=== PATIENT | female | born 1965 | race Asian ===

== ENCOUNTER 2016-12-06 08:40 | Outpatient (CLI) | payer BC, OTHER ==
[2016-12-06 09:46] LABS: APPEARANCE,URINE CLEAR (CLEAR); BILIRUBIN,URINE NEGATIVE (NEGATIVE); BLOOD, URINE 1+ Ery/uL (NEGATIVE); COLOR,URINE YELLOW (YELLOW); KETONES,URINE NEGATIVE (NEGATIVE); LEUKOCYTE ESTERASE ,URINE NEGATIVE (NEGATIVE); NITRITE, URINE NEGATIVE (NEGATIVE); PH,URINE 5.5 (5.0-8.0); PROTEIN,URINE NEGATIVE (NEGATIVE); UGLUCOSE NEGATIVE (NEGATIVE); UROBILINOGEN,URINE 0.2 EU/dL (0.2)
[2016-12-06 09:56] LABS: BASOPHILS % (AUTO) 0.8 % (0.0-2.0); EOSINOPHILS # (AUTO) 0.2 /CMM (0.0-0.7); EOSINOPHILS % (AUTO) 3.4 % (0.0-6.0); HEMATOCRIT 45 % (33-45); HEMOGLOBIN 15.1 g/dL (11.5-14.8); LYMPHOCYTES # (AUTO) 1.6 /CMM (0.8-4.8); LYMPHOCYTES % (AUTO) 28.2 % (20.0-44.0); MEAN CORPUSCULAR HEMOGLOBIN 31 PG (26.0-33.0); MEAN CORPUSCULAR HGB CONC 34 g/dl (31.0-36.0); MEAN CORPUSCULAR VOLUME 91 fL (82-100); MONOCYTES # (AUTO) 0.4 /CMM (0.1-1.30); MONOCYTES % (AUTO) 7.5 % (2.0-12.0); NEUTROPHILS # (AUTO) 3.6 /CMM (1.8-8.9); NEUTROPHILS % (AUTO) 60.1 % (43.0-81.0); PLATELET COUNT (AUTO) 246 /CMM (150-450); RDW COEFFICIENT OF VARIATION 11.3 (11.5-15.0); RED BLOOD CELL COUNT(AUTO) 4.88 MIL/uL (4.0-5.2); WHITE BLOOD COUNT (AUTO) 5.8 K/uL (4.3-11.0)
[2016-12-06 10:06] LABS: ALBUMIN 4.2 g/dL (3.4-5.0); BILIRUBIN,TOTAL 0.7 mg/dL (0.2-1.0); CALCIUM, SERUM 9.2 mg/dL (8.5-10.1); CREATININE 0.8 mg/dL (0.6-1.3); POTASSIUM 4.1 mmol/L (3.5-5.1); TOTAL PROTEIN, SERUM 7.8 g/dL (6.4-8.2)
[2016-12-06 10:09] LABS: INR 0.89 (0.87-1.13); PROTHROMBIN TIME 9.4 SECS (9.5-12.7)
[2016-12-06 10:12] LABS: THYROID STIMULATING HORMONE 1.243 uIU/mL (0.358-3.74)
[2016-12-06 10:51] LABS: BACTERIA,URINE Rare /HPF (None Seen); RBC,URINE 0-2 /HPF (0-2); SQUAMOUS EPITHELIAL CELL,UR Rare /HPF (None Seen)
== END 2016-12-06 23:59 | disposition home or self-care (01) ==
LOC: LAB 08:40
PROVIDERS: ATTEND Legal Medicine
DX: Z00.00 Encounter for general adult medical examination without abnormal findings (principal); I10 Essential (primary) hypertension; E78.5 Hyperlipidemia, unspecified; E03.9 Hypothyroidism, unspecified
CPT/HCPCS: 80053-TC; 80061-TC; 81000-TC; 82306; 84443-TC; 85025-TC; 85730-TC; 86850-TC

== ENCOUNTER 2016-12-24 16:13 | Outpatient (CLI) | payer BC, OTHER ==
[2016-12-25 11:14] LABS: *RUBEOLA AB (IGG) >300.0 AU/mL (Immune >29.9); VARICELLA ZOSTER IgG <135 index (Immune >165)
[2016-12-26 05:11] LABS: RUBELLA ANTIBODIES, IGG 1.17 index (Immune >0.99)
== END 2016-12-24 23:59 | disposition home or self-care (01) ==
LOC: LAB 16:13
PROVIDERS: ATTEND Legal Medicine
DX: Z00.01 Encounter for general adult medical examination with abnormal findings (principal)
CPT/HCPCS: 36415; 80305; 86706; 86735; 86762; 86765; 86787

== ENCOUNTER 2017-02-08 10:45 | Outpatient (CLI) | payer BC, OTHER ==
[2017-02-09 12:16] LABS: VARICELLA ZOSTER IgG 191 index (Immune >165)
== END 2017-02-08 23:59 | disposition home or self-care (01) ==
LOC: LAB 10:45
PROVIDERS: ATTEND Internal Medicine
DX: Z11.59 Encounter for screening for other viral diseases (principal)
CPT/HCPCS: 36415; 86787

== ENCOUNTER 2017-02-16 08:28 | Outpatient (CLI) | payer BC, OTHER | END 2017-02-16 23:59 | disposition home or self-care (01) | LOC: RAD 08:28 | PROVIDERS: ATTEND Legal Medicine | DX: R76.11 Nonspecific reaction to tuberculin skin test without active tuberculosis (principal) | CPT/HCPCS: 71020-TC ==

== ENCOUNTER 2017-04-24 06:49 | Outpatient (CLI) | payer BC ==
[2017-04-24 07:47] LABS: BASOPHILS % (AUTO) 0.4 % (0.0-2.0); EOSINOPHILS # (AUTO) 0.2 /CMM (0.0-0.7); EOSINOPHILS % (AUTO) 2.9 % (0.0-6.0); HEMATOCRIT 42 % (33-45); HEMOGLOBIN 14.3 g/dL (11.5-14.8); LYMPHOCYTES % (AUTO) 27.1 % (20.0-44.0); MEAN CORPUSCULAR HEMOGLOBIN 31 PG (26.0-33.0); MEAN CORPUSCULAR HGB CONC 34 g/dl (31.0-36.0); MEAN CORPUSCULAR VOLUME 91 fL (82-100); MONOCYTES # (AUTO) 0.5 /CMM (0.1-1.30); MONOCYTES % (AUTO) 7.1 % (2.0-12.0); NEUTROPHILS # (AUTO) 4.7 /CMM (1.8-8.9); NEUTROPHILS % (AUTO) 62.5 % (43.0-81.0); PLATELET COUNT (AUTO) 211 /CMM (150-450); RDW COEFFICIENT OF VARIATION 12.4 (11.5-15.0); RED BLOOD CELL COUNT(AUTO) 4.59 MIL/uL (4.0-5.2); WHITE BLOOD COUNT (AUTO) 7.5 K/uL (4.3-11.0)
[2017-04-24 07:52] LABS: ALANINE AMINOTRANSFERASE 63 U/L (12-78); ALKALINE PHOSPHATASE 80 U/L (46-116); ASPARTATE AMINOTRANSFERASE 35 U/L (15-37); BILIRUBIN,TOTAL 0.7 mg/dL (0.2-1.0); CALCIUM, SERUM 9.2 mg/dL (8.5-10.1); CARBON DIOXIDE 26 mmol/L (21-32); CHLORIDE 105 mmol/L (98-107); CREATININE 0.7 mg/dL (0.6-1.3); GLUCOSE 100 mg/dL (74-106); SODIUM SERUM 140 mmol/L (136-145); TOTAL PROTEIN, SERUM 7.5 g/dL (6.4-8.2); UREA NITROGEN, BLOOD 15 mg/dL (7-18)
[2017-04-24 08:16] LABS: IRON, SERUM 100 ug/dl (50-175); TOTAL IRON BINDING CAPACITY 261 ug/dl (250-450)
[2017-04-24 08:35] LABS: CHOLESTEROL 196 mg/dL (<200); FERRITIN 324 ng/mL (8-388); HDL CHOLESTEROL 57 mg/dL (40-60); LDL 120 mg/dL (0-99); THYROID STIMULATING HORMONE 2.391 uIU/mL (0.358-3.74); TRIGLYCERIDES 127 mg/dL (30-150); URIC ACID 4.7 mg/dL (2.6-7.2)
[2017-04-24 08:41] LABS: C-REACTIVE PROTEIN < 0.2 mg/dL (0.0-0.9)
[2017-04-24 09:05] LABS: APPEARANCE,URINE CLEAR (CLEAR); BILIRUBIN,URINE NEGATIVE (NEGATIVE); BLOOD, URINE 1+ Ery/uL (NEGATIVE); COLOR,URINE YELLOW (YELLOW); KETONES,URINE NEGATIVE (NEGATIVE); LEUKOCYTE ESTERASE ,URINE NEGATIVE (NEGATIVE); NITRITE, URINE NEGATIVE (NEGATIVE); PH,URINE 5.5 (5.0-8.0); PROTEIN,URINE NEGATIVE (NEGATIVE); UGLUCOSE NEGATIVE (NEGATIVE); UROBILINOGEN,URINE 0.2 EU/dL (0.2)
[2017-04-24 09:36] LABS: BACTERIA,URINE Rare /HPF (None Seen); RBC,URINE 0-2 /HPF (0-2); SQUAMOUS EPITHELIAL CELL,UR Rare /HPF (None Seen); WBC,URINE 0-2 /HPF (0-3)
== END 2017-04-24 23:59 | disposition home or self-care (01) ==
LOC: LAB 06:49
DX: D64.9 Anemia, unspecified (principal)
CPT/HCPCS: 36415; 80053-TC; 80061-TC; 81000-TC; 82306; 82728-TC; 82746; 83540-TC; 84443-TC; 84550-TC; 85025-TC; 85652-TC; 86140-TC

== ENCOUNTER 2017-10-21 07:19 | Outpatient (CLI) | payer BC ==
[2017-10-21 08:58] LABS: APPEARANCE,URINE CLEAR (CLEAR); BILIRUBIN,URINE NEGATIVE (NEGATIVE); BLOOD, URINE TRACE-INTA Ery/uL (NEGATIVE); COLOR,URINE YELLOW (YELLOW); KETONES,URINE NEGATIVE (NEGATIVE); LEUKOCYTE ESTERASE ,URINE NEGATIVE (NEGATIVE); NITRITE, URINE NEGATIVE (NEGATIVE); PROTEIN,URINE NEGATIVE (NEGATIVE); UGLUCOSE NEGATIVE (NEGATIVE); UROBILINOGEN,URINE 0.2 EU/dL (0.2)
[2017-10-21 09:12] LABS: BASOPHILS # (AUTO) 0.1 /CMM (0.0-0.2); BASOPHILS % (AUTO) 0.9 % (0.0-2.0); HEMATOCRIT 45 % (33-45); HEMOGLOBIN 15.8 g/dL (11.5-14.8); LYMPHOCYTES # (AUTO) 1.6 /CMM (0.8-4.8); MEAN CORPUSCULAR HGB CONC 36 g/dl (31.0-36.0); MEAN CORPUSCULAR VOLUME 90 fL (82-100); MONOCYTES # (AUTO) 0.4 /CMM (0.1-1.30); MONOCYTES % (AUTO) 5.5 % (2.0-12.0); NEUTROPHILS # (AUTO) 4.2 /CMM (1.8-8.9); NEUTROPHILS % (AUTO) 63.6 % (43.0-81.0); PLATELET COUNT (AUTO) 224 /CMM (150-450); RDW COEFFICIENT OF VARIATION 11.5 (11.5-15.0); RED BLOOD CELL COUNT(AUTO) 4.93 MIL/uL (4.0-5.2); WHITE BLOOD COUNT (AUTO) 6.6 K/uL (4.3-11.0)
[2017-10-21 09:22] LABS: ALBUMIN 4.1 g/dL (3.4-5.0); BILIRUBIN,TOTAL 0.6 mg/dL (0.2-1.0); CREATININE 0.8 mg/dL (0.6-1.3); POTASSIUM 4.2 mmol/L (3.5-5.1); TOTAL PROTEIN, SERUM 7.9 g/dL (6.4-8.2)
[2017-10-21 09:37] LABS: BACTERIA,URINE None seen /HPF (None Seen); SQUAMOUS EPITHELIAL CELL,UR Few /HPF (None Seen); WBC,URINE NONE SEEN /HPF (0-3)
[2017-10-21 10:14] LABS: THYROID STIMULATING HORMONE 1.178 uIU/mL (0.358-3.74); URIC ACID 4.7 mg/dL (2.6-7.2)
== END 2017-10-21 23:59 | disposition home or self-care (01) ==
LOC: LAB 07:19
PROVIDERS: ATTEND Legal Medicine
DX: Z00.01 Encounter for general adult medical examination with abnormal findings (principal); E55.9 Vitamin D deficiency, unspecified; R79.89 Other specified abnormal findings of blood chemistry
CPT/HCPCS: 36415; 80053-TC; 80061-TC; 81000-TC; 82306; 82728-TC; 82746; 83540-TC; 84443-TC; 84550-TC; 85025-TC

== ENCOUNTER 2017-11-29 13:20 | Outpatient (CLI) | payer BC | END 2017-11-29 23:59 | disposition home or self-care (01) | LOC: LAB 13:20 | PROVIDERS: ATTEND Obstetrics & Gynecology | DX: Z01.411 Encounter for gynecological examination (general) (routine) with abnormal findings (principal) | CPT/HCPCS: 88142 ==

== ENCOUNTER 2017-12-01 09:10 | Outpatient (CLI) | payer BC | END 2017-12-01 23:59 | disposition home or self-care (01) | LOC: US 09:10 | PROVIDERS: ATTEND Obstetrics & Gynecology | DX: N94.89 Other specified conditions associated with female genital organs and menstrual cycle (principal) | CPT/HCPCS: 76856-TC ==

== ENCOUNTER 2017-12-13 08:37 | Outpatient (CLI) | payer BC | END 2017-12-13 23:59 | disposition home or self-care (01) | LOC: RAD 08:37 | PROVIDERS: ATTEND Legal Medicine | DX: M20.12 Hallux valgus (acquired), left foot (principal); M21.611 Bunion of right foot; M21.612 Bunion of left foot | CPT/HCPCS: 73630-TC ==

== ENCOUNTER 2017-12-16 09:00 | Outpatient (CLI) | payer BC | END 2017-12-16 23:59 | disposition home or self-care (01) | LOC: WOU 09:00 | PROVIDERS: ATTEND Podiatrist Foot & Ankle Surgery | DX: M21.612 Bunion of left foot (principal); Q66.89 Other specified congenital deformities of feet; M79.672 Pain in left foot | CPT/HCPCS: 99213; Z7610; G0463 ==

== ENCOUNTER 2018-02-25 11:12 | Outpatient (CLI) | payer BC ==
[2018-02-25 12:58] LABS: BASOPHILS % (AUTO) 0.3 % (0.0-2.0); HEMATOCRIT 46 % (33-45); HEMOGLOBIN 15.5 g/dL (11.5-14.8); LYMPHOCYTES # (AUTO) 1.9 /CMM (0.8-4.8); LYMPHOCYTES % (AUTO) 27.5 % (20.0-44.0); MEAN CORPUSCULAR HEMOGLOBIN 32 PG (26.0-33.0); MEAN CORPUSCULAR HGB CONC 34 g/dl (31.0-36.0); MEAN CORPUSCULAR VOLUME 94 fL (82-100); MONOCYTES # (AUTO) 0.6 /CMM (0.1-1.30); MONOCYTES % (AUTO) 8.5 % (2.0-12.0); NEUTROPHILS # (AUTO) 4.2 /CMM (1.8-8.9); NEUTROPHILS % (AUTO) 61.7 % (43.0-81.0); PLATELET COUNT (AUTO) 263 /CMM (150-450); RDW COEFFICIENT OF VARIATION 12.4 (11.5-15.0); RED BLOOD CELL COUNT(AUTO) 4.92 MIL/uL (4.0-5.2); WHITE BLOOD COUNT (AUTO) 6.8 K/uL (4.3-11.0)
[2018-02-25 13:03] LABS: APPEARANCE,URINE SL CLOUDY (CLEAR); BILIRUBIN,URINE NEGATIVE (NEGATIVE); BLOOD, URINE TRACE Ery/uL (NEGATIVE); COLOR,URINE YELLOW (YELLOW); KETONES,URINE NEGATIVE (NEGATIVE); LEUKOCYTE ESTERASE ,URINE NEGATIVE (NEGATIVE); NITRITE, URINE NEGATIVE (NEGATIVE); PH,URINE 5.5 (5.0-8.0); PROTEIN,URINE NEGATIVE (NEGATIVE); UGLUCOSE NEGATIVE (NEGATIVE); UROBILINOGEN,URINE 0.2 EU/dL (0.2)
[2018-02-25 13:15] LABS: BACTERIA,URINE 1+ /HPF (None Seen); WBC,URINE 0-2 /HPF (0-3)
[2018-02-25 13:42] LABS: ALANINE AMINOTRANSFERASE 64 U/L (12-78); ALBUMIN 4.1 g/dL (3.4-5.0); ALKALINE PHOSPHATASE 85 U/L (46-116); ASPARTATE AMINOTRANSFERASE 36 U/L (15-37); BILIRUBIN,TOTAL 0.7 mg/dL (0.2-1.0); CALCIUM, SERUM 9.4 mg/dL (8.5-10.1); CARBON DIOXIDE 26 mmol/L (21-32); CHLORIDE 103 mmol/L (98-107); CHOLESTEROL 239 mg/dL (<200); CREATINE KINASE, TOTAL 128 U/L (26-192); CREATININE 0.8 mg/dL (0.6-1.3); FREE T4 (FREE THYROXINE) 1.05 ng/dL (0.76-1.46); GLUCOSE 84 mg/dL (74-106); HDL CHOLESTEROL 60 mg/dL (40-60); LDL 148 mg/dL (0-99); POTASSIUM 4.2 mmol/L (3.5-5.1); SODIUM SERUM 140 mmol/L (136-145); THYROID STIMULATING HORMONE 1.693 uIU/mL (0.358-3.74); TOTAL PROTEIN, SERUM 7.8 g/dL (6.4-8.2); TRIGLYCERIDES 244 mg/dL (30-150); UREA NITROGEN, BLOOD 18 mg/dL (7-18); URIC ACID 5.2 mg/dL (2.6-7.2)
[2018-02-25 13:43] LABS: C-REACTIVE PROTEIN < 0.2 mg/dL (0.0-0.9)
[2018-02-25 14:03] LABS: INR 0.87 (0.87-1.13)
[2018-02-26 18:07] LABS: *ANA ANTI-CENTROMERE B AB <0.2 AI (0.0-0.9); *ANA ANTI-DNA(DS) AB, QN 2 IU/mL (0-9); *ANA ANTI-JO-1 <0.2 AI (0.0-0.9); *ANA ANTICHROMATIN ANTIBODY <0.2 AI (0.0-0.9); *ANA RNP ANTIBODIES <0.2 AI (0.0-0.9); *ANA SJOGREN'S ANTI-SS-A <0.2 AI (0.0-0.9); *ANA SJOGREN'S ANTI-SS-B <0.2 AI (0.0-0.9); *ANAANTI-SCLERODERMA-70 AB <0.2 AI (0.0-0.9); *ANASMITH AB <0.2 AI (0.0-0.9)
== END 2018-02-25 23:59 | disposition home or self-care (01) ==
LOC: LAB 11:12
PROVIDERS: ATTEND Legal Medicine
DX: Z00.01 Encounter for general adult medical examination with abnormal findings (principal); M25.551 Pain in right hip
CPT/HCPCS: 36415; 71046; 73502; 80053-TC; 80061-TC; 81000-TC; 82085; 82306; 82550-TC; 84439-TC; 84443-TC; 84550-TC; 85025-TC; 85610-TC; 85652-TC; 85730-TC; 86140-TC; 86200; 86225; 86235; 86431-TC

== ENCOUNTER 2018-03-11 05:34 | Inpatient (IN) | payer BC ==
[~2018-03-11] VITALS: Ht 165.1 cm; Wt 79.4 kg
[2018-03-11 06:00] VITALS: BP 136/88
--- NOTE | 2018-03-11 06:20 | NUR ---
RN OPENING NOTES: ADMITTED PATIENT FOR DAY SURGERY. PATIENT CAME IN AMBULATORY; ALERT ORIENTED. IV INSERTED. PATIENT ASSISTED AND DRESSED. SAFETY MEASURES ENSURED. KEPT NPO. CONTINUOUSLY MONITORED. AWAITING FOR SURGERY.
[2018-03-11] MEDS ORDERED: ANESTHESIA TRAY IN PYXIS 1 EA TRAY MC ONE (07:08)
[2018-03-11] MEDS ORDERED: BUPIVACAINE 0.5 % PF 150 MG/30 ML VIAL ONE (07:08)
[2018-03-11] MEDS ORDERED: LIDOCAINE HCL/PF 1% 30 ML SDV ONE (07:08)
[2018-03-11] MEDS ORDERED: MIDAZOLAM HCL 2 MG/2ML VIAL ONE (07:29)
[2018-03-11] MEDS ORDERED: HYDROGEN PEROXIDE 480 ML BOTTLE ONE (11:21)
[2018-03-11 13:45] VITALS: BP 141/94
--- NOTE | 2018-03-11 13:45 | NUR ---
RN NOTE PT CAM BACK FROM SURGERY, STABLE, AOX4, DROWSY, DENIES PAIN, REQUESTED BED [place], LEFT FOOT CAST IN PLACE, ELEVATED ON PILLOWS. VS STABLE, AT BEDSIDE. WILL MONITOR.
[2018-03-11 14:10] VITALS: BP 146/94
[2018-03-11] MEDS ORDERED: HYDROCODONE/APAP 5/325MG 1 EACH TABLET PO ONE (14:30)
[2018-03-11 16:00] VITALS: BP 139/88
--- NOTE | 2018-03-11 17:22 | NUR ---
RN NOTE PT DISCHARGED HOME IN STABLE CONDITION, HELPED HER ON WHEELCHAIR TO GET TO A CAR, IV REMOVED, ID BAND REMOVED, VS STABLE. PRESCRIPTION GIVEN TO PT, DISCHARGE INSTRUCTIONS GIVEN TO PT, EXIT CARE DONE, TEACHING DONE TO PT, PT VERBALIZED UNDERSTANDING, BELONGINGS GIVEN TO PT. PT ATE LUNCH, PAIN MEDICATION [place] GIVEN, EFFECTIVE PAIN RELIEF. PT LEFT VIA OWN TRANSPORTATION, WITH .
== END 2018-03-11 17:09 | disposition home or self-care (01) | DRG 505 ==
LOC: DS 05:34 → MEDSG1 05:49
PROVIDERS: ADMIT Podiatrist Foot & Ankle Surgery; ATTEND Podiatrist Foot & Ankle Surgery
PROC: 0QBP0ZZ Excision of Left Metatarsal, Open Approach (ICD-10-PCS; principal; 2018-03-11 07:30)
PROC: 0SGN04Z Fusion of Left Metatarsal-Phalangeal Joint with Internal Fixation Device, Open Approach (ICD-10-PCS; principal; 2018-03-11 07:30)
DX: M20.12 Hallux valgus (acquired), left foot (principal); I10 Essential (primary) hypertension; M21.612 Bunion of left foot
CPT/HCPCS: 73630-TC; A6402; J0690; J1100; J1885; J2250; J2704; J3490; J7120

== ENCOUNTER 2018-03-17 10:48 | Outpatient (CLI) | payer BC | END 2018-03-17 23:59 | disposition home or self-care (01) | LOC: WOU 10:48 | PROVIDERS: ATTEND Podiatrist Foot & Ankle Surgery | DX: Z47.89 Encounter for other orthopedic aftercare (principal); M21.612 Bunion of left foot; Q66.89 Other specified congenital deformities of feet; Z98.1 Arthrodesis status | CPT/HCPCS: 99214; A6402; Z7610; G0463 ==

== ENCOUNTER 2018-03-23 11:22 | Outpatient (CLI) | payer BC | END 2018-03-23 23:59 | disposition home or self-care (01) | LOC: RAD 11:22 | PROVIDERS: ATTEND Podiatrist Foot & Ankle Surgery | DX: Z47.89 Encounter for other orthopedic aftercare (principal); M24.675 Ankylosis, left foot | CPT/HCPCS: 73630-TC ==

== ENCOUNTER 2018-03-24 09:56 | Outpatient (CLI) | payer BC | END 2018-03-24 23:59 | disposition home or self-care (01) | LOC: WOU 09:56 | PROVIDERS: ATTEND Podiatrist Foot & Ankle Surgery | DX: T84.223A Displacement of internal fixation device of bones of foot and toes, initial encounter (principal); M79.672 Pain in left foot | CPT/HCPCS: A6402; G0463; Z7610 ==

== ENCOUNTER 2018-03-24 11:01 | Outpatient (CLI) | payer BC ==
[2018-03-24 11:33] LABS: HEMATOCRIT 43 % (33-45); HEMOGLOBIN 14.5 g/dL (11.5-14.8); MEAN CORPUSCULAR HGB CONC 34 g/dl (31.0-36.0); MEAN CORPUSCULAR VOLUME 93 fL (82-100); NEUTROPHILS % (AUTO) 61.7 % (43.0-81.0); PLATELET COUNT (AUTO) 308 /CMM (150-450); RDW COEFFICIENT OF VARIATION 12.6 (11.5-15.0); RED BLOOD CELL COUNT(AUTO) 4.56 MIL/uL (4.0-5.2); WHITE BLOOD COUNT (AUTO) 6.9 K/uL (4.3-11.0)
[2018-03-24 11:34] LABS: BASOPHILS % (AUTO) 0.7 % (0.0-2.0); EOSINOPHILS % (AUTO) 1.8 % (0.0-6.0); LYMPHOCYTES # (AUTO) 1.8 /CMM (0.8-4.8); LYMPHOCYTES % (AUTO) 25.5 % (20.0-44.0); MONOCYTES # (AUTO) 0.7 /CMM (0.1-1.30); MONOCYTES % (AUTO) 10.3 % (2.0-12.0); NEUTROPHILS # (AUTO) 4.3 /CMM (1.8-8.9)
[2018-03-24 11:45] LABS: INR 0.9 (0.87-1.13)
[2018-03-24 11:47] LABS: BILIRUBIN,TOTAL 0.7 mg/dL (0.2-1.0); CALCIUM, SERUM 9.4 mg/dL (8.5-10.1); POTASSIUM 4.1 mmol/L (3.5-5.1); TOTAL PROTEIN, SERUM 7.8 g/dL (6.4-8.2)
== END 2018-03-24 23:59 | disposition home or self-care (01) ==
LOC: LAB 11:01
PROVIDERS: ATTEND Podiatrist Foot & Ankle Surgery
DX: M79.672 Pain in left foot (principal)
CPT/HCPCS: 36415; 80053-TC; 85025-TC; 85610-TC; 85730-TC

== ENCOUNTER 2018-04-04 09:55 | Outpatient (CLI) | payer BC | END 2018-04-04 23:59 | disposition home or self-care (01) | LOC: WOU 09:55 | PROVIDERS: ATTEND Podiatrist Foot & Ankle Surgery | DX: Z47.89 Encounter for other orthopedic aftercare (principal); T81.89XD Other complications of procedures, not elsewhere classified, subsequent encounter; M79.672 Pain in left foot | CPT/HCPCS: 99213; A6402; Z7610; G0463 ==

== ENCOUNTER 2018-04-07 15:51 | Outpatient (CLI) | payer BC | END 2018-04-07 23:59 | disposition home or self-care (01) | LOC: RAD 15:51 | PROVIDERS: ATTEND Podiatrist Foot & Ankle Surgery | DX: Z48.89 Encounter for other specified surgical aftercare (principal); M24.675 Ankylosis, left foot; M25.775 Osteophyte, left foot; M79.89 Other specified soft tissue disorders | CPT/HCPCS: 73630-TC ==

== ENCOUNTER 2018-04-11 09:48 | Outpatient (CLI) | payer BC | END 2018-04-11 23:59 | disposition home or self-care (01) | LOC: WOU 09:48 | PROVIDERS: ATTEND Podiatrist Foot & Ankle Surgery | DX: Z47.89 Encounter for other orthopedic aftercare (principal); M79.672 Pain in left foot; Z98.1 Arthrodesis status | CPT/HCPCS: A6402; G0463; Z7610 ==

== ENCOUNTER 2018-06-13 09:00 | Outpatient (CLI) | payer BC | END 2018-06-13 23:59 | disposition home or self-care (01) | LOC: WOU 09:00 | PROVIDERS: ATTEND Podiatrist Foot & Ankle Surgery | DX: Z47.89 Encounter for other orthopedic aftercare (principal); M79.672 Pain in left foot; Z98.1 Arthrodesis status | CPT/HCPCS: G0463; Z7610 ==

== ENCOUNTER 2018-06-23 09:00 | Outpatient (CLI) | payer BC ==
[~2018-06-23 09:00] MED LIST: BUPIVACAINE MPF 0.5% W/EPI INJ 30 ML VIAL ONE; CEFAZOLIN 0 GM ONE; HEMOSTATIC MATRIX 10 ML 1 EACH PAD MC ONE; LIDOCAINE HCL/PF 1% 30 ML SDV ONE; METHYLENE BLUE 10 ML VIAL ONE; methylPREDNISolone ACETATE 80 MG/ML VIAL ONE
== END 2018-06-23 23:59 | disposition home or self-care (01) ==
LOC: WOU 09:00
PROVIDERS: ATTEND Podiatrist Foot & Ankle Surgery
DX: Z47.89 Encounter for other orthopedic aftercare (principal); M79.672 Pain in left foot
CPT/HCPCS: A6402; G0463; J0690; J1040; J3490; Q9968

== ENCOUNTER 2018-07-19 12:54 | Outpatient (CLI) | payer BC | END 2018-07-19 23:59 | disposition home or self-care (01) | LOC: RAD 12:54 | PROVIDERS: ATTEND Podiatrist Foot & Ankle Surgery | DX: M19.072 Primary osteoarthritis, left ankle and foot (principal) | CPT/HCPCS: 73630-TC ==

== ENCOUNTER 2018-07-21 09:00 | Outpatient (CLI) | payer BC | END 2018-07-21 23:59 | disposition home or self-care (01) | LOC: WOU 09:00 | PROVIDERS: ATTEND Podiatrist Foot & Ankle Surgery | DX: T84.84XA Pain due to internal orthopedic prosthetic devices, implants and grafts, initial encounter (principal); M79.672 Pain in left foot | CPT/HCPCS: G0463 ==

== ENCOUNTER 2018-07-25 12:56 | Outpatient (CLI) | payer BC ==
[2018-07-25 13:36] LABS: BASOPHILS % (AUTO) 0.7 % (0.0-2.0); EOSINOPHILS % (AUTO) 2.6 % (0.0-6.0); HEMATOCRIT 45 % (33-45); HEMOGLOBIN 15.2 g/dL (11.5-14.8); LYMPHOCYTES # (AUTO) 1.7 /CMM (0.8-4.8); LYMPHOCYTES % (AUTO) 29.6 % (20.0-44.0); MEAN CORPUSCULAR HGB CONC 34 g/dl (31.0-36.0); MEAN CORPUSCULAR VOLUME 93 fL (82-100); MONOCYTES # (AUTO) 0.6 /CMM (0.1-1.30); MONOCYTES % (AUTO) 9.5 % (2.0-12.0); NEUTROPHILS # (AUTO) 3.4 /CMM (1.8-8.9); NEUTROPHILS % (AUTO) 57.6 % (43.0-81.0); PLATELET COUNT (AUTO) 230 /CMM (150-450); WHITE BLOOD COUNT (AUTO) 5.9 K/uL (4.3-11.0)
[2018-07-25 13:39] LABS: CALCIUM, SERUM 8.9 mg/dL (8.5-10.1); CREATININE 0.8 mg/dL (0.6-1.3)
== END 2018-07-25 23:59 | disposition home or self-care (01) ==
LOC: LAB 12:56
PROVIDERS: ATTEND Legal Medicine
DX: Z01.818 Encounter for other preprocedural examination (principal); T84.84XA Pain due to internal orthopedic prosthetic devices, implants and grafts, initial encounter; R94.31 Abnormal electrocardiogram [ECG] [EKG]
CPT/HCPCS: 36415; 80048-TC; 85025-TC; 85610-TC; 85730-TC

== ENCOUNTER 2018-07-28 07:24 | Day surgery (SDC) | payer BC ==
[2018-07-28] MEDS ORDERED: FENTANYL PF 100MCG/2ML AMPUL ONE (09:31)
[2018-07-28] MEDS ORDERED: MIDAZOLAM HCL 2 MG/2ML VIAL ONE (09:31)
[2018-07-28] MEDS ORDERED: BUPIVACAINE 0.25% 75 MG/30 ML VIAL ONE (09:35)
== END 2018-07-28 11:45 | disposition home or self-care (01) ==
LOC: DS 07:24
PROVIDERS: ATTEND Podiatrist Foot & Ankle Surgery
DX: T84.84XA Pain due to internal orthopedic prosthetic devices, implants and grafts, initial encounter (principal); Y79.3 Surgical instruments, materials and orthopedic devices (including sutures) associated with adverse incidents
CPT/HCPCS: 73630-TC; 88300-TC; A6402; J0690; J2250; J2405; J2704; J3010; J3490

== ENCOUNTER 2018-08-30 10:52 | Outpatient (CLI) | payer BC | END 2018-08-30 23:59 | disposition home or self-care (01) | LOC: RAD 10:52 | PROVIDERS: ATTEND Podiatrist Foot & Ankle Surgery | DX: M19.072 Primary osteoarthritis, left ankle and foot (principal); M85.872 Other specified disorders of bone density and structure, left ankle and foot | CPT/HCPCS: 73630-TC ==

== ENCOUNTER 2018-09-01 09:00 | Outpatient (CLI) | payer BC | END 2018-09-01 23:59 | disposition home or self-care (01) | LOC: WOU 09:00 | PROVIDERS: ATTEND Podiatrist Foot & Ankle Surgery | DX: Z47.89 Encounter for other orthopedic aftercare (principal); M96.0 Pseudarthrosis after fusion or arthrodesis; M79.672 Pain in left foot | CPT/HCPCS: G0463 ==

== ENCOUNTER 2018-11-22 11:53 | Outpatient (CLI) | payer BC | END 2018-11-22 23:59 | disposition home or self-care (01) | LOC: RAD 11:53 | PROVIDERS: ATTEND Podiatrist Foot & Ankle Surgery | DX: M19.072 Primary osteoarthritis, left ankle and foot (principal); M21.6X2 Other acquired deformities of left foot | CPT/HCPCS: 73630-TC ==

== ENCOUNTER 2018-11-24 11:01 | Outpatient (CLI) | payer BC | END 2018-11-24 23:59 | disposition home or self-care (01) | LOC: WOU 11:01 | PROVIDERS: ATTEND Podiatrist Foot & Ankle Surgery | DX: Z09 Encounter for follow-up examination after completed treatment for conditions other than malignant neoplasm (principal); M96.0 Pseudarthrosis after fusion or arthrodesis; M79.672 Pain in left foot | CPT/HCPCS: G0463 ==

== ENCOUNTER 2019-01-02 09:42 | Outpatient (CLI) | payer BC | END 2019-01-02 23:59 | disposition home or self-care (01) | LOC: RAD 09:42 | PROVIDERS: ATTEND Nurse Practitioner Acute Care | DX: R05 Cough (principal); Z86.11 Personal history of tuberculosis | CPT/HCPCS: 71046 ==

== ENCOUNTER 2019-03-13 15:17 | Outpatient (CLI) | payer BC | END 2019-03-13 23:59 | disposition home or self-care (01) | LOC: RAD 15:17 | PROVIDERS: ATTEND Podiatrist Foot & Ankle Surgery | DX: M19.072 Primary osteoarthritis, left ankle and foot (principal) | CPT/HCPCS: 73630-TC ==

== ENCOUNTER 2019-03-16 08:30 | Outpatient (CLI) | payer BC | END 2019-03-16 23:59 | disposition home or self-care (01) | LOC: WOU 08:30 | PROVIDERS: ATTEND Podiatrist Foot & Ankle Surgery | DX: Z47.89 Encounter for other orthopedic aftercare (principal); M96.0 Pseudarthrosis after fusion or arthrodesis; M79.672 Pain in left foot | CPT/HCPCS: G0463 ==

== ENCOUNTER 2019-06-23 15:24 | Outpatient (CLI) | payer BC | END 2019-06-23 23:59 | disposition home or self-care (01) | LOC: RAD 15:24 | PROVIDERS: ATTEND Podiatrist Foot & Ankle Surgery | DX: M19.072 Primary osteoarthritis, left ankle and foot (principal); M25.775 Osteophyte, left foot; M25.872 Other specified joint disorders, left ankle and foot | CPT/HCPCS: 73630-TC ==

== ENCOUNTER 2019-07-17 07:43 | Outpatient (CLI) | payer BC ==
[2019-07-17 10:25] LABS: BASOPHILS % (AUTO) 0.8 % (0.0-2.0); EOSINOPHILS % (AUTO) 1.8 % (0.0-6.0); HEMATOCRIT 43 % (33-45); HEMOGLOBIN 14.6 g/dL (11.5-14.8); LYMPHOCYTES # (AUTO) 1.6 /CMM (0.8-4.8); LYMPHOCYTES % (AUTO) 26.3 % (20.0-44.0); MEAN CORPUSCULAR HGB CONC 34 g/dl (31.0-36.0); MEAN CORPUSCULAR VOLUME 93 fL (82-100); MONOCYTES # (AUTO) 0.5 /CMM (0.1-1.30); MONOCYTES % (AUTO) 8.4 % (2.0-12.0); NEUTROPHILS # (AUTO) 3.9 /CMM (1.8-8.9); NEUTROPHILS % (AUTO) 62.7 % (43.0-81.0); PLATELET COUNT (AUTO) 226 /CMM (150-450); RED BLOOD CELL COUNT(AUTO) 4.62 MIL/uL (4.0-5.2); WHITE BLOOD COUNT (AUTO) 6.2 K/uL (4.3-11.0)
[2019-07-17 10:36] LABS: ALBUMIN 4.1 g/dL (3.4-5.0); BILIRUBIN,TOTAL 0.9 mg/dL (0.2-1.0); CALCIUM, SERUM 9.1 mg/dL (8.5-10.1); CREATININE 0.8 mg/dL (0.6-1.3); TOTAL PROTEIN, SERUM 7.5 g/dL (6.4-8.2)
== END 2019-07-17 23:59 | disposition home or self-care (01) ==
LOC: LAB 07:43
PROVIDERS: ATTEND Internal Medicine Cardiovascular Disease
DX: I10 Essential (primary) hypertension (principal); R07.9 Chest pain, unspecified; E78.5 Hyperlipidemia, unspecified
CPT/HCPCS: 36415; 80053-TC; 80061-TC; 85025-TC

== ENCOUNTER 2019-09-01 08:15 | Outpatient (CLI) | payer BC | END 2019-09-01 23:59 | disposition home or self-care (01) | LOC: WOU 08:15 | PROVIDERS: ATTEND Podiatrist Foot & Ankle Surgery | DX: M20.12 Hallux valgus (acquired), left foot (principal); M96.0 Pseudarthrosis after fusion or arthrodesis; M79.671 Pain in right foot; M79.672 Pain in left foot; M20.41 Other hammer toe(s) (acquired), right foot; M20.42 Other hammer toe(s) (acquired), left foot; R60.0 Localized edema; M19.079 Primary osteoarthritis, unspecified ankle and foot | CPT/HCPCS: G0463 ==

== ENCOUNTER 2019-09-01 09:15 | Outpatient (CLI) | payer BC ==
[2019-09-01 10:39] LABS: ALANINE AMINOTRANSFERASE 39 U/L (12-78); ALBUMIN 3.9 g/dL (3.4-5.0); ALKALINE PHOSPHATASE 75 U/L (46-116); ASPARTATE AMINOTRANSFERASE 25 U/L (15-37); BILIRUBIN,TOTAL 0.7 mg/dL (0.2-1.0); CALCIUM, SERUM 8.8 mg/dL (8.5-10.1); CARBON DIOXIDE 24 mmol/L (21-32); CHLORIDE 105 mmol/L (98-107); CREATININE 0.8 mg/dL (0.6-1.3); GLUCOSE 103 mg/dL (74-106); SODIUM SERUM 141 mmol/L (136-145); TOTAL PROTEIN, SERUM 7.3 g/dL (6.4-8.2); UREA NITROGEN, BLOOD 15 mg/dL (7-18)
[2019-09-01 10:47] LABS: THYROID STIMULATING HORMONE 1.084 uIU/mL (0.358-3.74)
[2019-09-01 10:51] LABS: C-REACTIVE PROTEIN < 0.2 mg/dL (0.0-0.9)
[2019-09-01 11:13] LABS: BASOPHILS % (AUTO) 0.7 % (0.0-2.0); EOSINOPHILS % (AUTO) 3.1 % (0.0-6.0); HEMATOCRIT 44 % (33-45); HEMOGLOBIN 14.7 g/dL (11.5-14.8); LYMPHOCYTES # (AUTO) 1.6 /CMM (0.8-4.8); LYMPHOCYTES % (AUTO) 25.1 % (20.0-44.0); MEAN CORPUSCULAR HGB CONC 34 g/dl (31.0-36.0); MEAN CORPUSCULAR VOLUME 94 fL (82-100); MONOCYTES # (AUTO) 0.4 /CMM (0.1-1.30); MONOCYTES % (AUTO) 6.4 % (2.0-12.0); NEUTROPHILS # (AUTO) 4.1 /CMM (1.8-8.9); NEUTROPHILS % (AUTO) 64.7 % (43.0-81.0); PLATELET COUNT (AUTO) 213 /CMM (150-450); RED BLOOD CELL COUNT(AUTO) 4.67 MIL/uL (4.0-5.2); WHITE BLOOD COUNT (AUTO) 6.4 K/uL (4.3-11.0)
== END 2019-09-01 23:59 | disposition home or self-care (01) ==
LOC: RAD 09:15
PROVIDERS: ATTEND Podiatrist Foot & Ankle Surgery
DX: M19.072 Primary osteoarthritis, left ankle and foot (principal); M20.12 Hallux valgus (acquired), left foot; M24.675 Ankylosis, left foot; M77.32 Calcaneal spur, left foot; M77.52 Other enthesopathy of left foot and ankle; M79.89 Other specified soft tissue disorders; M21.42 Flat foot [pes planus] (acquired), left foot; M25.775 Osteophyte, left foot; M79.671 Pain in right foot
CPT/HCPCS: 36415; 73630-TC; 73650-TC; 73700-TC; 80053-TC; 82306; 83970; 84443-TC; 85025-TC; 85652-TC; 86140-TC

== ENCOUNTER 2019-09-15 08:00 | Outpatient (CLI) | payer BC | END 2019-09-15 23:59 | disposition home or self-care (01) | LOC: WOU 08:00 | PROVIDERS: ATTEND Podiatrist Foot & Ankle Surgery | DX: M96.0 Pseudarthrosis after fusion or arthrodesis (principal); R60.0 Localized edema; M20.12 Hallux valgus (acquired), left foot; M21.41 Flat foot [pes planus] (acquired), right foot; M21.42 Flat foot [pes planus] (acquired), left foot | CPT/HCPCS: G0463 ==